=== PATIENT | male | born 1950 | race African-American/Black ===

== ENCOUNTER 2018-06-03 00:15 | Emergency (ER) | payer MEDICARE, MEDICAID ==
[~2018-06-03] VITALS: Ht 165.1 cm; Wt 96.0 kg
[2018-06-03 00:42] VITALS: BP 111/79
--- NOTE | 2018-06-03 00:48 | NUR ---
Per Fady pt welcome at [facility]. Bethany to be provided for her transport. carolina Juarez notified.
== END 2018-06-03 00:57 | disposition home or self-care (01) ==
LOC: ER 00:16
DX: F41.9 Anxiety disorder, unspecified (principal)
CPT/HCPCS: 99284